=== PATIENT | male | born 1970 | race Hispanic/Latino ===

== ENCOUNTER 2016-05-25 21:37 | Emergency (ER) | payer MEDICAID ==
[2016-05-25 21:38] VITALS: BMI 30.1
[2016-05-25] MEDS ORDERED: Sodium Chloride 0.9% 1,000 ML IV ONE (22:47)
[2016-05-25] MEDS ORDERED: Belladonna-Phenobarbital PO STA (22:47)
[2016-05-25 23:23] LABS: URINE BACTERIA RARE (<OCC); URINE BILIRUBIN NEGATIVE (NEGATIVE); URINE BLOOD NEGATIVE (NEGATIVE); URINE COLOR Straw (YELLOW); URINE GLUCOSE (UA) NORMAL (Normal); URINE KETONE NEGATIVE (NEGATIVE); URINE LEUKOCYTE ESTERASE NEG Leu/uL (Negative); URINE PROTEIN NEGATIVE (NEGATIVE); URINE UROBILINOGEN NORMAL mg/dL (0.2-1.0)
[2016-05-25] MEDS ORDERED: Iohexol 240 (50 ml) PO STA (23:42)
--- NOTE | 2016-05-25 23:42 | C.PDOC ---
Time Seen by Provider: 05/25/16 22:37 Chief Complaint (Nursing): Abdominal Pain History Per: Patient History/Exam Limitations: intoxication Onset/Duration Of Symptoms: Days (1) Current Symptoms Are (Timing): Still Present Severity: Moderate Location Of Pain/Discomfort: RLQ Quality Of Discomfort: "Pain" Associated Symptoms: Diarrhea Alleviating Factors: None Additional History Per: Prior Records Past Medical History Reviewed: Historical Data, Nursing Documentation, Vital Signs Vital Signs: Last Vital Signs Temp 97.6 F 05/25/16 22:04 Pulse 87 05/25/16 22:04 Resp 14 05/25/16 22:04 BP 127/85 05/25/16 22:04 Pulse Ox 96 05/25/16 23:42 - Medical History PMH: Fractures (Left Hand Fx Sugery done 2006), Gall Bladder Disease, Pancreatitis, Pneumonia (Couple Yrs. Ago), Seizures (unknown eitiology) Other PMH: Alcoholic liver cirrhosis Surgical History: Cholecystectomy, Tonsillectomy - [facility] ALCOHOL DETOXIFICATION (10/19/12) Family History: States: Unknown Family Hx - Social History Hx Tobacco Use: No Hx Alcohol Use: Yes (Hx alcoholism) Hx Substance Use: Yes - Immunization History Hx Tetanus Toxoid Vaccination: No Hx Influenza Vaccination: Yes Hx Pneumococcal Vaccination: Yes Review Of Systems Except As Marked, All Systems Reviewed And Found Negative. Cardiovascular: Negative for: Chest Pain Respiratory: Negative for: Shortness of Breath Gastrointestinal: Positive for: Abdominal Pain, Diarrhea. Negative for: Vomiting, Melena, Hematochezia, Hematemesis Genitourinary: Negative for: Dysuria Musculoskeletal: Negative for: Neck Pain, Back Pain Skin: Negative for: Rash Neurological: Negative for: Weakness, Numbness, Seizures, Altered Mental Status Physical Exam - Physical Exam Appears: No Acute Distress, Other (AOB) Skin: Warm, Dry Head: Atraumatic, Normacephalic Eye(s): bilateral: PERRL, EOMI Neck: Normal ROM, Supple Cardiovascular: Rhythm Regular Respiratory: Normal Breath Sounds, No Accessory Muscle Use Gastrointestinal/Abdominal: Soft, Tenderness (RLQ), No Guarding, No Rebound Back: No CVA Tenderness Male Genital: No Testicular Tenderness, No Scrotal Swelling Extremity: Normal ROM Neurological/Psych: Oriented x3, Normal Motor, Normal Sensation ED Course And Treatment - Laboratory Results Result Diagrams: 05/25/16 23:47 05/25/16 23:47 O2 Sat by Pulse Oximetry: 96 Pulse Ox Interpretation: Normal Disposition - Disposition Disposition Time: 01:00 Condition: FAIR - Clinical Impression Clinical Impression: Abdominal pain, Diarrhea, Alcohol intoxication Physician Patient Turnover Patient Signed Over To: Kiki Sky Handoff Comments: to f/up CT scan of abdomen/pelvis.
[2016-05-25] MEDS ORDERED: Belladonna-Phenobarbital ONE (23:46)
[2016-05-25] MEDS ORDERED: Sodium Chloride 0.9% 1,000 ML ONE (23:46)
[2016-05-25 23:50] LABS: BASO % 0.9 % (0.0-2.0); EOS # 0.1 K/uL (0.0-0.7); EOS % 1.7 % (0.0-4.0); HEMATOCRIT 32.2 % (35.0-51.0); LYMPH # 1.1 K/uL (1.0-4.3); LYMPH % 26.6 % (20.0-40.0); MEAN CELL VOLUME 88.8 fL (80.0-94.0); MEAN CORPUSCULAR HEMOGLOBIN 29.7 pg (27.0-31.0); MEAN CORPUSCULAR HGB CONC 33.4 g/dL (33.0-37.0); MEAN PLATELET VOLUME 7.1 fL (7.2-11.7); MONO # 0.5 K/uL (0.0-0.8); MONO % 13.5 % (0.0-10.0); NRBC % 0.1 % (0.0-2.0); RED CELL DISTRIBUTION WIDTH 19.3 % (11.5-14.5)
[2016-05-25 23:53] LABS: INR 1.3
[2016-05-25 23:58] LABS: CHLORIDE 103 mmol/L (98-107); SODIUM 142 mmol/L (132-148)
[2016-05-25 23:59] LABS: POTASSIUM 4.2 mmol/L (3.6-5.2)
[2016-05-26 00:01] LABS: ALKALINE PHOSPHATASE 114 U/L (38-126); ALT/SGPT 24 U/L (21-72); AST/SGOT 49 U/L (17-59); BILIRUBIN,TOTAL 1.6 mg/dL (0.2-1.3); BLOOD UREA NITROGEN 12 mg/dL (9-20); CARBON DIOXIDE 24 mmol/L (22-30); GFR AFRICAN-AMERICAN > 60; TOTAL PROTEIN 7.8 g/dL (6.3-8.3)
[2016-05-26 00:02] LABS: ALCOHOL SERUM 147 mg/dl (0-10); CALCIUM 8.4 mg/dl (8.6-10.4); GLUCOSE,RANDOM 81 mg/dL (75-110)
[2016-05-26] MEDS ORDERED: Iohexol 240 (50 ml) ONE (00:07)
[2016-05-26 01:40] VITALS: RESP 16; O2SAT 97
--- NOTE | 2016-05-26 03:02 | CT ---
EXAM: CT Abdomen and Pelvis Without Intravenous Contrast CLINICAL HISTORY: 46 years old, male; Pain; Abdominal pain; Generalized; Additional info: Rlq pain, diarrhea TECHNIQUE: Axial computed tomography images of the abdomen and pelvis without intravenous contrast. This CT exam was performed using one or more of the following dose reduction techniques: automated exposure control, adjustment of the mA and/or kV according to patient size, and/or use of iterative reconstruction technique. Coronal and sagittal reformatted images were created and reviewed. EXAM DATE/TIME: Exam ordered 05/26/2016 12:05 AM COMPARISON: CT - ABD PELVIS IV CONTRA 03/15/2015 2:26:26 AM FINDINGS: There is comparison to previous dated March 15, 2015, at which time there was note of cirrhosis with collaterals, cholelithiasis, partial portal vein occlusion. Lower thorax: Lung bases with no focal airspace disease. ABDOMEN: Liver: There is redemonstration of cirrhotic changes of the liver. Noncontrast study does not evaluate the portal venous system and is very limited in evaluation of the parenchymal organs. Questionable finding series 2 image 23 in the lateral segment left lobe, there is a questioned very subtle focal hypoattenuation of 11 mm, noting that series 2 image 16 of the study of February 2015 there was a similar location and similar sized hyper attenuating finding. Gallbladder and bile ducts: Cholecystectomy clips. Pancreas: Unremarkable. No ductal dilation. Spleen: Prominent spleen. There is redemonstration of prominent perisplenic collaterals. There is redemonstration of massive collaterals in the right lower quadrant which were better appreciated on the previous study, at which time intravenous contrast was given. Adrenals: Unremarkable. No mass. Kidneys and ureters: No hydronephrosis of either kidney. No ureteral stones are seen noting that punctate stones or noncalcified stones may not be well seen on CT. Stomach and bowel: Oral contrast was administered and has passed to the cecum. There is no finding to suggest acute obstruction of small bowel. There is no evidence of acute diverticulitis. There is no evidence to suggest acute diverticulitis noted multiple diverticuli. Appendix: No findings to suggest acute appendicitis. PELVIS: Bladder: Unremarkable. No stones. Reproductive: Coarse calcification in the prostate. ABDOMEN and PELVIS: Intraperitoneal space: There is no free air. No significant fluid collection. Bones/joints: Bony structures with no acute fractures. No dislocation. Soft tissues: Severe gynecomastia. Fat-containing left inguinal hernia. Vasculature: See above. Lymph nodes: Unremarkable. No enlarged lymph nodes. IMPRESSION: Oral contrast has passed to the cecum, there is no evidence of small bowel obstruction. Cirrhosis with massive collaterals. Advise evaluation of the liver for suspected neoplasm as above noting previous enhancement in this location and noting greatly increased risk for this patient. A normal appendix is demonstrated. Right lower quadrant otherwise of note for massive collateral vessels. The absence of intravenous contrast greatly limits evaluation of the parenchymal organs and vascular system.
[2016-05-26 06:17] VITALS: BP 134/80; PULSE 82; TEMP 97.5
== END 2016-05-26 06:24 | disposition home or self-care (01) ==
LOC: C.ER 21:37
DX: K70.30 Alcoholic cirrhosis of liver without ascites (principal); R10.31 Right lower quadrant pain; F10.129 Alcohol abuse with intoxication, unspecified; Y90.6 Blood alcohol level of 120-199 mg/100 ml; R19.7 Diarrhea, unspecified
CPT/HCPCS: 74176; 80053; 80320; 80324; 80345; 80346; 80349; 80353; 80358; 80361; 81001; 83690; 83992; 85025; 85610; 85730; 96374; 96375; 99283; C9113; J2270; J7040; Q9966